=== PATIENT | female | born 1935 | race Hispanic/Latino ===

== ENCOUNTER 2016-09-24 11:56 | Emergency (ER) | payer MEDICARE ==
[2016-09-24 11:57] VITALS: BMI 23.0
[2016-09-24 12:34] VITALS: BP 152/82; PULSE 97; RESP 16; TEMP 98; O2SAT 97
[2016-09-24] MEDS ORDERED: TDAP Vaccine 0.5 mL Syr IM ONE (13:06)
--- NOTE | 2016-09-24 13:09 | ED PDOC ---
Arrival/HPI - General Chief Complaint: Trauma Time Seen by Provider: 09/24/16 12:35 Historian: Patient, Spouse - History of Present Illness Narrative History of Present Illness (Text): 09/24/16 12:35 This 81 yo female presents to this ED c/o right lower leg laceration, and left hand pain X LIFT DRIVER. Patient stated she slipped on her bath tube, causing her to scrape skin. Last tetanus is UKN. Patient denies head injury, LOC, neck pain, cp, syncope, sob, horner, or abnormal gait. Time/Duration: Prior to Arrival Context: Home Past Medical History - Provider Review Nursing Documentation Reviewed: Yes - Cardiac Hx Cardiac Disorders: Yes (bradycardia) - Pulmonary Hx Respiratory Disorders: No - Neurological Hx Neurological Disorder: No - HEENT Hx HEENT Disorder: No - Renal Hx Renal Disorder: No - Endocrine/Metabolic Hx Endocrine Disorders: No - Hematological/Oncological Hx Blood Disorders: No - Integumentary Hx Dermatological Disorder: No - Musculoskeletal/Rheumatological Hx Musculoskeletal Disorders: No - Gastrointestinal Hx Gastrointestinal Disorders: Yes Hx Gastroesophageal Reflux: Yes Hx Irritable Bowel: Yes - Genitourinary/Gynecological Hx Genitourinary Disorders: No - Psychiatric Hx Psychophysiologic Disorder: No Hx Substance Use: No - Surgical History Hx Hysterectomy: Yes Family/Social History - Physician Review Nursing Documentation Reviewed: Yes Family/Social History: No Known Family HX Smoking Status: Never Smoked Hx Alcohol Use: No Hx Substance Use: No Allergies/Home Meds Allergies/Adverse Reactions: Allergies Penicillins Allergy (Verified 09/24/16 12:31) ANAPHYLAXIS Home Medications: Home Meds Medication Instructions Recorded Confirmed Albuterol Sulfate [Proair Hfa] 0.09 mg IH DAILY 07/15/12 07/28/14 Cholecalciferol [Vitamin D] 1,000 iu PO DAILY 07/15/12 07/28/14 Montelukast [Singulair] 10 mg PO DAILY 07/15/12 07/28/14 Omeprazole [Prilosec] 40 mg PO DAILY 07/15/12 07/28/14 Review of Systems - Review of Systems Constitutional: Normal. absent: Fatigue, Weight Change, Fevers Eyes: Normal ENT: Normal Respiratory: Normal. absent: SOB, Cough, Sputum Cardiovascular: Normal. absent: Chest Pain, Palpitations Gastrointestinal: Normal. absent: Abdominal Pain, Nausea, Vomiting Genitourinary Female: Normal. absent: Dysuria, Frequency, Hematuria Musculoskeletal: Normal. absent: Arthralgias Skin: Laceration, Other (abrasion) Neurological: Normal. absent: Headache, Dizziness, Focal Weakness, Gait Changes Endocrine: Normal Hemo/Lymphatic: Normal Psychiatric: Normal Physical Exam Vital Signs Temp Pulse Resp BP Pulse Ox 09/24/16 12:34 98 F 97 H 16 152/82 H 97 Temperature: Afebrile Blood Pressure: Normal Pulse: Regular Respiratory Rate: Normal Appearance: Positive for: Well-Appearing, Non-Toxic, Comfortable Pain Distress: None Mental Status: Positive for: Alert and Oriented X 3 - Systems Exam Head: Present: Atraumatic, Normocephalic, Other (no raccoon sign. No roberto sign) Pupils: Present: PERRL, Other (no hyphema) Extroacular Muscles: Present: EOMI Conjunctiva: Present: Normal Ears: Present: Normal, NORMAL TM, Normal Canal, Other (No hemotympanum). No: Erythema, TM Bulging, Fluid, TM Perf Mouth: Present: Moist Mucous Membranes Pharnyx: Present: Normal. No: ERYTHEMA, EXUDATE, TONSILS ENLARGED Nose (External): Present: Atraumatic Nose (Internal): Present: Normal Inspection Neck: Present: Normal Range of Motion, Trachea Midline. No: Meningeal Signs, MIDLINE TENDERNESS, Paraspinal Tenderness Respiratory/Chest: Present: Clear to Auscultation, Good Air Exchange. No: Respiratory Distress, Accessory Muscle Use Cardiovascular: Present: Regular Rate and Rhythm, Normal S1, S2. No: Murmurs Abdomen: Present: Normal Bowel Sounds. No: Tenderness, Distention, Peritoneal Signs Back: Present: Normal Inspection. No: CVA Tenderness Upper Extremity: Present: Normal Inspection, Normal ROM, NORMAL PULSES, Capillary Refill < 2s. No: Cyanosis, Edema Lower Extremity: Present: NORMAL PULSES, Normal ROM, Neurovascularly Intact, Capillary Refill < 2 s, Other ((+) lower leg laceration). No: Edema, CALF TENDERNESS Neurological: Present: GCS=15, CN II-XII Intact, Speech Normal Skin: Present: Warm, Dry, Normal Color. No: Rashes Psychiatric: Present: Alert, Oriented x 3, Normal Insight, Normal Concentration Medical Decision Making ED Course and Treatment: 06/21/17 14:32 Re-evaluation. Patient feels better. Discussed results and plan with patient who expresses understanding. All questions answered and there is agreement with the plan to discharge home with instructions. Patient stable for discharge. Return if symptoms persist or worsen Re-evaluation Time: 14:32 Reassessment Condition: Re-examined, Improved - RAD Interpretation Narrative RAD Interpretations (Text): 09/24/16 14:32 Accession No. : [id number] Patient Name / ID : JAQUELINE JOHNSON / [id number] Exam Date : 09/24/2016 13:00:26 ( Approved ) Study Comment : Sex / Age : F / 81Y Creator : Makenzie San MD Dictator : Makenzie San MD Blind Aide : Parts Counter Specialist : Makenzie San MD Approver2 : Report Date : 09/24/2016 13:58:06 My Comment : PROCEDURE: Left Hand Radiographs. HISTORY: pain s/p fall COMPARISON: None. FINDINGS: BONES: There is no acute displaced fracture or bone destruction. Bone alignment is normal. There is diffuse bone demineralization. 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 SOFT TISSUES: There is mild periarticular soft tissue swelling at the proximal interphalangeal joints. OTHER FINDINGS: None. IMPRESSION: No acute fracture or dislocation. Radiology Orders: 09/24/16 13:06 HAND LEFT 3 VIEWS ROUTINE [RAD] Stat - Medication Orders Current Medication Orders: Discontinued Medications Tetanus/Reduced Diphtheria/Acell Pertussis (Boostrix Vaccine Inj) 0.5 ml IM .ONCE ONE Stop: 09/24/16 13:07 Last Admin: 09/24/16 13:13 Dose: 0.5 ml - Procedure PROCEDURE NOTE (Text): 09/24/16 14:30 PROCEDURE: LACERATION REPAIR Performed by the emergency provider Location: right lower leg Length: 5 cm Description: clean wound edges, no foreign bodies Distal CMS: Normal. No deficits. Neurovascularly intact. Anesthesia: Lidocaine 1% , Epi with Epi Preparation: The wound was cleaned with NS and Bet[place]ne. The area was prepped and draped in the usual sterile fashion. Exploration: The wound was explored and no foreign bodies were found. Procedure: The wound was closed with 4-0 nylon. There was good approximation. In total, 7 sutures were used. Post-Procedure: Good closure and hemostasis. The patient tolerated the procedure well and there were no complications. CSM remains intact. Post procedure dressing applied. Disposition/Present on Arrival - Present on Arrival Any Indicators Present on Arrival: No History of DVT/PE: No History of Uncontrolled Diabetes: No Urinary Catheter: No History of Decub. Ulcer: No History Surgical Site Infection Following: None - Disposition Have Diagnosis and Disposition been Completed?: Yes Diagnosis: Fall, Leg laceration, Knee abrasion, Hand pain, left Disposition: HOME/ ROUTINE Disposition Time: 14:33 Patient Plan: Discharge Condition: GOOD Discharge Instructions (ExitCare): Laceration (ED) Additional Instructions: Call private doctor for follow up visit and wound check in 2-3 days. Keep wound clean and dry for 2 days, then clean wound with soap and water daily. Sutures needs to be removed in 8-9 days. Return to emergency if wound becomes painful, redness, or discharge Prescriptions: Clindamycin [Cleocin] 300 mg PO TID #15 cap Referrals: Devorah West MD [Primary Care Provider] - Follow up with primary
--- NOTE | 2016-09-24 13:59 | RAD ---
PROCEDURE: Left Hand Radiographs. HISTORY: pain s/p fall COMPARISON: None. FINDINGS: BONES: There is no acute displaced fracture or bone destruction. Bone alignment is normal. There is diffuse bone demineralization. 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 SOFT TISSUES: There is mild periarticular soft tissue swelling at the proximal interphalangeal joints. OTHER FINDINGS: None. IMPRESSION: No acute fracture or dislocation.
== END 2016-09-24 14:45 | disposition home or self-care (01) ==
LOC: ED 11:56
DX: S81.811A Laceration without foreign body, right lower leg, initial encounter (principal); S80.211A Abrasion, right knee, initial encounter; W18.2XXA Fall in (into) shower or empty bathtub, initial encounter; Y93.E1 Activity, personal bathing and showering; Y92.002 Bathroom of unspecified non-institutional (private) residence as the place of occurrence of the external cause; M79.642 Pain in left hand; Z23 Encounter for immunization